=== PATIENT | female | born 1980 | race Caucasian/White ===

== ENCOUNTER 2018-12-22 08:45 | Inpatient (IN) | payer OTHER ==
[~2018-12-22] VITALS: Ht 152.4 cm; Wt 57.6 kg
== END 2018-12-24 15:09 | disposition home or self-care (01) | DRG 581 ==
LOC: O/R 12-23 07:30 → SURG 12-23 17:32 → SURH 12-26 08:45
PROVIDERS: ADMIT Plastic Surgery
PROC: 0H0V0ZZ Alteration of Bilateral Breast, Open Approach (ICD-10-PCS; principal; 2018-12-23 07:00)
PROC: 0W0F0ZZ Alteration of Abdominal Wall, Open Approach (ICD-10-PCS; 2018-12-23 07:00)
DX: N62 Hypertrophy of breast (principal); E65 Localized adiposity; M62.08 Separation of muscle (nontraumatic), other site; K21.0 Gastro-esophageal reflux disease with esophagitis; E66.01 Morbid (severe) obesity due to excess calories; Z98.84 Bariatric surgery status